=== PATIENT | male | born 1945 | race Caucasian/White ===

== ENCOUNTER 2018-07-10 12:47 | Emergency (ER) | payer MEDICARE, OTHER ==
[2018-07-10] MEDS ORDERED: ASPIRIN 81 MG CHEW PO ONE (12:55)
[2018-07-10 13:00] LABS: PLATELET COUNT, AUTOMATED 191 K/uL (150-450)
--- NOTE | 2018-07-10 13:04 | ER Report ---
History and Physical Time Seen By MD: 13:02 Hx. 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 EXTENSIVE CARDIAC HISTORY HPI/ROS CHIEF COMPLAINT: Chest pain HISTORY OF PRESENT ILLNESS: 73-year-old male history of 16 stents placed multiple MIs 5 was out trimming trees and started getting acute shortness of breath with associated chest discomfort. Patient states this is his classic pres entation when he has shortness of breath 1st followed by chest pain. He is lessened by his gas singer last week for a similar episode. Patient states that he took one nitroglycerin of 50 minutes after its onset immunizable stager within 3-5 minutes subsequently O Jaswinder 2nd nitroglycerin before he started getting relief and normally he takes only one. I spoke to his significant other and decided to come here for emergent evaluation. On arrival here he still had some residual discomfort but he says he is pretty much has discomfort most time. Patient denies any nausea vomiting diarrhea fever chills no longer short of breath. REVIEW OF SYSTEMS: Respiratory: Shortness of breath no cough Cardiovascular: Chest pain no palpitations Gastrointestinal: No vomiting, no abdominal pain. Musculoskeletal: No back pain. Remainder of the 14 system rev: Yes Allergies: Coded Allergies: No Known Drug Allergies (Unverified , 07/10/18) Home Meds Reported Medications Nitroglycerin (NITROGLYCERIN) 0.4 Mg Tab.subl, 0.4 MG SL Q5MIN PRN for CHEST PAIN 07/10/18 Potassium Gluconate (POTASSIUM) 99 Mg Tablet, 99 MG PO DAILY 07/10/18 Ascorbic Acid (VITAMIN C) 500 Mg Tablet, 1000 MG PO DAILY, TAB 07/10/18 Garlic (GARLIC) 1,000 Mg Capsule, 1000 MG PO DAILY, CAPSULE 07/10/18 Cinnamon Bark (CINNAMON) 500 Mg Capsule, 1500 MG PO 1-2XD, CAPSULE 07/10/18 Esomeprazole Magnesium (NEXIUM) 40 Mg Capsule.dr, 1 CAP PO QDAY, CAP 07/10/18 Cetirizine Hcl (ZYRTEC) 10 Mg Capsule, 10 MG PO QDAY, CAPSULE 07/10/18 Gluc/Dusty-Msm#2/C/D3/Tj/Born ([id number] TAB) 1 Each Tablet, 1 EACH PO DAILY 07/10/18 Atorvastatin Calcium (LIPITOR) 40 Mg Tablet, 2 TAB PO QDAY, TAB 07/10/18 Aspirin (ASPIRIN) 81 Mg Tab.chew, 81 MG PO QDAY, TAB.CHEW 07/10/18 Losartan Potassium (LOSARTAN POTASSIUM) 25 Mg Tablet, 25 MG PO QDAY 07/10/18 Amoxicillin 500 Mg Tab (AMOXICILLIN 500 MG TAB) 500 Mg Tablet, 4 TAB PO ONCE, #20 TAB 07/10/18 Allopurinol (ZYLOPRIM) 300 Mg Tablet, 300 MG PO QDAY, TAB 07/10/18 Isosorbide Mononitrate (ISOSORBIDE MONONITRATE ER) 60 Mg Tab.er.24h, 60 MG PO DAILY 07/10/18 Clopidogrel Bisulfate (CLOPIDOGREL) 75 Mg Tablet, 1 TAB PO QDAY, TAB 07/10/18 Metoprolol Succinate (METOPROLOL SUCCINATE) 50 Mg Tab.er.24h, 1 TAB PO QDAY, TAB 07/10/18 Furosemide (FUROSEMIDE) 20 Mg Tablet, 1 TAB PO Q3D, TAB 07/10/18 Amlodipine Besylate (AMLODIPINE BESYLATE) 10 Mg Tablet, 1 TAB PO QDAY, TAB 07/10/18 Glipizide (GLIPIZIDE ER) 2.5 Mg Tab.er.24, 2.5 MG PO BID 07/10/18 Levothyroxine Sodium (LEVOTHYROXINE SODIUM) 50 Mcg Tablet, 125 MCG PO QDAY, TAB 07/10/18 Metformin Hcl (METFORMIN HCL) 500 Mg Tablet, 1 TAB PO BID, TAB 07/10/18 Tramadol Hcl (TRAMADOL HCL) 50 Mg Tablet, 50 MG PO BID, TAB 07/10/18 Fenofibrate Nanocrystallized (FENOFIBRATE) 145 Mg Tablet, 145 MG PO QDAY 07/10/18 Reviewed Nurses Notes: Yes Old Medical Records Reviewed: Yes Constitutional Vital Sign - Last 24 Hours 07/10/18 07/10/18 07/10/18 07/10/18 12:47 12:48 12:49 12:59 Temp 98.5 Pulse 62 66 Resp 16 B/P (MAP) 146/84 (104) 146/84 Pulse Ox 91 O2 Delivery Room Air O2 Flow Rate 2.0 07/10/18 07/10/18 07/10/18 07/10/18 13:01 13:02 13:15 13:17 Pulse 59 60 Resp 12 20 B/P (MAP) 149/76 (100) 135/65 (88) Pulse Ox 97 96 Physical Exam General Appearance: The patient is alert, has no immediate need for airway protection and no current signs of toxicity. [ ] Eyes: Pupils equal and round no injection. Respiratory: Chest is non tender, lungs are clear to auscultation. Cardiac: regular rate and rhythm [ ] Gastrointestinal: Abdomen is soft and non tender, no masses, bowel sounds nor mal. Musculoskeletal: Neck: Neck is supple and non tender. Extremities have full range of motion and are non tender. Skin: No rashes or lesions. [ ] DIFFERENTIAL DIAGNOSIS: After history and physical exam differential diagnosis was considered for myocardial infarction and STEMI pulmonary embolus angina stable versus unstable Medical Decision Making Data Points Result Diagram: 07/10/18 1215 07/10/18 1215 Laboratory Hematology Test 07/10/18 12:15 07/10/18 14:02 Red Blood Count 4.43 M/uL (4.00-5.60) Mean Corpuscular Volume 93.2 fL (80.0-96.0) Mean Corpuscular Hemoglobin 31.1 pg (26.0-33.0) Mean Corpuscular Hemoglobin Concent 33.4 g/dL (32.0-36.0) Red Cell Distribution Width 15.6 % (11.5-14.5) Mean Platelet Volume 9.2 fL (7.2-11.1) Neutrophils (%) (Auto) 67.3 % (39.4-72.5) Lymphocytes (%) (Auto) 20.4 % (17.6-49.6) Monocytes (%) (Auto) 9.4 % (4.1-12.4) Eosinophils (%) (Auto) 1.8 % (0.4-6.7) Basophils (%) (Auto) 1.1 % (0.3-1.4) Nucleated RBC Relative Count (auto) 0.0 /100WBC Neutrophils # (Auto) 5.8 K/uL (2.0-7.4) Lymphocytes # (Auto) 1.7 K/uL (1.3-3.6) Monocytes # (Auto) 0.8 K/uL (0.3-1.0) Eosinophils # (Auto) 0.2 K/uL (0.0-0.5) Basophils # (Auto) 0.1 K/uL (0.0-0.1) Nucleated RBC Absolute Count (auto) 0.00 K/uL Prothrombin Time 13.0 seconds (12.0-14.4) Prothromb Time International Ratio 0.98 Activated Partial Thromboplast Time 28 seconds (23-35) D-Dimer Quantitative (PE/DVT) < 0.27 ug/ml (0-0.50) Sodium Level 139 mmol/L (137-145) Potassium Level 4.0 mmol/L (3.5-5.0) Chloride Level 105 mmol/L (98-107) Carbon Dioxide Level 23 mmol/L (22-30) Blood Urea Nitrogen 24 mg/dl (9-21) Creatinine 1.70 mg/dl (0.66-1.25) Glomerular Filtration Rate Calc 39.6 Random Glucose 178 mg/dl (75-110) Calcium Level 10.3 mg/dl (8.4-10.2) Total Bilirubin 0.6 mg/dl (0.2-1.3) Aspartate Amino Transf (AST/SGOT) 64 U/L (0-35) Alanine Aminotransferase (ALT/SGPT) 76 U/L (0-56) Alkaline Phosphatase 56 U/L (0-126) Total Protein 7.5 g/dl (6.3-8.2) Albumin 4.5 g/dl (3.5-5.0) Troponin I 0.019 ng/ml Chemistry Test 07/10/18 12:15 07/10/18 14:02 White Blood Count 8.6 k/uL (4.5-11.0) Red Blood Count 4.43 M/uL (4.00-5.60) Hemoglobin 13.8 g/dL (14.0-18.0) Hematocrit 41.3 % (42.0-52.0) Mean Corpuscular Volume 93.2 fL (80.0-96.0) Mean Corpuscular Hemoglobin 31.1 pg (26.0-33.0) Mean Corpuscular Hemoglobin Concent 33.4 g/dL (32.0-36.0) Red Cell Distribution Width 15.6 % (11.5-14.5) Platelet Count 191 K/uL (150-450) Mean Platelet Volume 9.2 fL (7.2-11.1) Neutrophils (%) (Auto) 67.3 % (39.4-72.5) Lymphocytes (%) (Auto) 20.4 % (17.6-49.6) Monocytes (%) (Auto) 9.4 % (4.1-12.4) Eosinophils (%) (Auto) 1.8 % (0.4-6.7) Basophils (%) (Auto) 1.1 % (0.3-1.4) Nucleated RBC Relative Count (auto) 0.0 /100WBC Neutrophils # (Auto) 5.8 K/uL (2.0-7.4) Lymphocytes # (Auto) 1.7 K/uL (1.3-3.6) Monocytes # (Auto) 0.8 K/uL (0.3-1.0) Eosinophils # (Auto) 0.2 K/uL (0.0-0.5) Basophils # (Auto) 0.1 K/uL (0.0-0.1) Nucleated RBC Absolute Count (auto) 0.00 K/uL Prothrombin Time 13.0 seconds (12.0-14.4) Prothromb Time International Ratio 0.98 Activated Partial Thromboplast Time 28 seconds (23-35) D-Dimer Quantitative (PE/DVT) < 0.27 ug/ml (0-0.50) Glomerular Filtration Rate Calc 39.6 Calcium Level 10.3 mg/dl (8.4-10.2) Total Bilirubin 0.6 mg/dl (0.2-1.3) Aspartate Amino Transf (AST/SGOT) 64 U/L (0-35) Alanine Aminotransferase (ALT/SGPT) 76 U/L (0-56) Alkaline Phosphatase 56 U/L (0-126) Total Protein 7.5 g/dl (6.3-8.2) Albumin 4.5 g/dl (3.5-5.0) Troponin I 0.019 ng/ml Coagulation Test 07/10/18 12:15 Prothrombin Time 13.0 seconds Prothromb Time International Ratio 0.98 Activated Partial Thromboplast Time 28 seconds D-Dimer Quantitative (PE/DVT) < 0.27 ug/ml ED Course/Re-evaluation ED Course ED clinical course medical decision making this is a 73-year-old vasculopath Dickstein stents in his heart comes in with unstable anginal equivalent workup showed an elevated troponin 0.18 and 0.19 respectively EKG with nothing acute creatinine is elevated 0.1 0.74 spoke to gas singer and asked us to do an exertional test ambulated. Discomfort increased that we would transfer him to a higher level care he we did ambulate and he did have an increase of pain consistent with exertion creating unstable anginal equivalent therefore we will go ahead and transfer him to a higher level care accepted by cardiology Decision to Disposition Date: July 10, 2018 Decision to Disposition Time: 15:08 Depart Departure Latest Vital Signs Vital Signs Date Time Temp Pulse Resp B/P (MAP) Pulse Ox O2 Delivery O2 Flow Rate FiO2 07/10/18 13:17 60 20 96 07/10/18 13:15 135/65 (88) 07/10/18 12:59 2.0 07/10/18 12:49 98.5 Room Air Impression: Primary Impression: Chest pain Condition: Improved Disposition: [facility] WILEY RILEY MD July 10, 2018 13:04
[2018-07-10 13:17] LABS: INR 0.98
[2018-07-10] MEDS ORDERED: ALLO-119 PO (13:24)
[2018-07-10] MEDS ORDERED: FENO145T36 PO (13:24)
[2018-07-10] MEDS ORDERED: ASPI81TA94 PO (13:24)
[2018-07-10] MEDS ORDERED: GLIP2.5T14 PO (13:24)
[2018-07-10] MEDS ORDERED: METO50TA19 PO (13:24)
[2018-07-10] MEDS ORDERED: LOSA25TA57 PO (13:24)
[2018-07-10] MEDS ORDERED: ESOM40CA42 PO (13:24)
[2018-07-10] MEDS ORDERED: METF-450 PO (13:24)
[2018-07-10] MEDS ORDERED: ISOS60TA42 PO (13:24)
[2018-07-10] MEDS ORDERED: FURO-45 PO (13:24)
[2018-07-10] MEDS ORDERED: CETI10CA8 PO (13:24)
[2018-07-10] MEDS ORDERED: GLUC-125 PO (13:24)
[2018-07-10] MEDS ORDERED: LEVO50TA86 PO (13:24)
[2018-07-10] MEDS ORDERED: ATOR40TA24 PO (13:24)
[2018-07-10] MEDS ORDERED: AMOX500T10 PO (13:24)
[2018-07-10] MEDS ORDERED: AMLO-127 PO (13:24)
[2018-07-10] MEDS ORDERED: CLOP75TA PO (13:24)
[2018-07-10] MEDS ORDERED: TRAM-420 PO (13:24)
[2018-07-10] MEDS ORDERED: CINN500C12 PO (13:25)
[2018-07-10] MEDS ORDERED: GARL10005 PO (13:25)
[2018-07-10] MEDS ORDERED: POTA99TA6 PO (13:25)
[2018-07-10] MEDS ORDERED: ASCO-182 PO (13:25)
[2018-07-10] MEDS ORDERED: NITR0.4T3 SL (13:27)
--- NOTE | 2018-07-10 13:33 | RADIOLOGY IMAGING REPORT ---
FACILITY: PATIENT NAME: Leann Shane : 1945 MR: [id number] V: [id number] EXAM DATE: ORDERING PHYSICIAN: WILEY RILEY TECHNOLOGIST: Location: [facility] [place] Patient: Leann Shane : 1945 Visit/Account:[id number] Date of Sevice: 07/10/2018 Chest with lateral, 2 views. HISTORY: Chest pain. COMPARISON: None. Surgical wires are present in the sternum. The heart size is normal. Coronary artery stents are prese nt along the heart. The aortic knob is calcified. The lungs are clear. No pleural fluid. Degenerative changes are present in the spine. IMPRESSION: Previous sternotomy. Atherosclerosis. Otherwise no evidence of acute cardiopulmonary disease. Report Dictated By: Omid Rothman MD at 07/10/2018 1:28 PM Report E-Signed By: Omid Rothman MD at 07/10/2018 1:29 PM [id number]
--- NOTE | 2018-07-10 13:53 | EKG ---
FACILITY: [facility] PATIENT NAME: VARGAS DIAZ : [id number] MR: [id number] V: [id number] EXAM DATE: ORDERING PHYSICIAN: WILEY RILEY TECHNOLOGIST: CRISTY Test Reason : CP Blood Pressure : / mmHG Vent. Rate : 064 BPM Atrial Rate : 064 BPM P-R Int : 190 ms QRS Dur : 102 ms QT Int : 432 ms P-R-T Axes : 057 039 037 degrees QTc Int : 445 ms Normal sinus rhythm Nonspecific ST and T wave abnormality Abnormal ECG No previous ECGs available Confirmed by LETY PERRIN ([id number]) on 07/10/2018 5:41:38 PM Referred By: OSVALDO Confirmed By:LETY PERRIN
[2018-07-10 17:21] VITALS: BP 142/82
== END 2018-07-10 17:20 | disposition short-term general hospital (02) ==
LOC: ER 12:51
DX: R07.9 Chest pain, unspecified (principal)
CPT/HCPCS: 71046; 82040; 82247; 82310; 82374; 82435; 82565; 82947; 84075; 84132; 84155; 84295; 84450; 84460; 84484; 84520; 85025; 85379; 85610; 85730; 93005; 99284

== ENCOUNTER → 2018-07-10 | Outpatient (CLI) | payer MEDICARE, OTHER ==
[~2018-07-10] MED LIST: ALLO-119 PO; AMLO-127 PO; AMOX500T10 PO; ASCO-182 PO; ASPI81TA94 PO; ATOR40TA24 PO; CETI10CA8 PO; CINN500C12 PO; CLOP75TA PO; ESOM40CA42 PO; FENO145T36 PO; FURO-45 PO; GARL10005 PO; GLIP2.5T14 PO; GLUC-125 PO; ISOS60TA42 PO; LEVO50TA86 PO; LOSA25TA57 PO; METF-450 PO; METO50TA19 PO; NITR0.4T3 SL; POTA99TA6 PO; TRAM-420 PO
== END ==
LOC: AMB 11:40
DX: R07.89 Other chest pain (principal)
CPT/HCPCS: A0425; A0427

== ENCOUNTER → 2018-07-10 | Outpatient (CLI) | payer MEDICARE, OTHER | LOC: AMB 18:45 | DX: R07.89 Other chest pain (principal) | CPT/HCPCS: A0425; A0426 ==